=== PATIENT | female | born 1955 | race Asian ===

== ENCOUNTER 2016-11-22 00:16 | Day surgery (SDC) | payer OTHER ==
[2016-11-22] VITALS (7 sets, daily range): BP systolic 114–143; BP diastolic 69–86; PULSE 61–88; RESP 14–16; O2SAT 97–100
[~2016-11-22] VITALS: Ht 152.4 cm; Wt 58.0 kg
[~2016-11-22 00:16] MED LIST: ACET-171 PO; DILT180C81 PO; DXPN25C PO; IBUP400T22 PO; OMEP20CA11 PO; PANT40TA2 PO; POLY17PO6 PO; SIMV40TA5 PO
[2016-11-22] MEDS ORDERED: fentaNYL-PF 50 mCg/mL 2 mL Inj IVPUSH PRN (06:00)
[2016-11-22] MEDS ORDERED: 0.9% Sodium Chloride 1,000 ML IV SCH (06:00)
[2016-11-22] MEDS ORDERED: Sodium Chloride LOK Flush 10 mL Syringe IV PRN (06:00)
== END 2016-11-22 23:59 | disposition home or self-care (01) ==
LOC: END 00:16
PROVIDERS: ATTEND Internal Medicine Gastroenterology
DX: Z12.11 Encounter for screening for malignant neoplasm of colon (principal); Z53.09 Procedure and treatment not carried out because of other contraindication; Z86.010 Personal history of colon polyps; K59.00 Constipation, unspecified; K21.9 Gastro-esophageal reflux disease without esophagitis; I10 Essential (primary) hypertension; J45.909 Unspecified asthma, uncomplicated; E78.5 Hyperlipidemia, unspecified; G47.00 Insomnia, unspecified; F32.9 Major depressive disorder, single episode, unspecified; K22.4 Dyskinesia of esophagus; E04.1 Nontoxic single thyroid nodule; Z87.891 Personal history of nicotine dependence
CPT/HCPCS: G0105; G0500; J2250; J3010; J7030

== ENCOUNTER → 2017-03-06 | Day surgery (SDC) | payer OTHER ==
[~2017-03-06] VITALS: Ht 152.4 cm; Wt 58.5 kg
[~2017-03-06] MED LIST changes: +Lactated Ringer's 1,000 ML IV ONE; -OMEP20CA11 PO; +Propofol 10 mg/mL 20 mL Inj ONE
--- NOTE | 2017-03-06 07:35 | PCM.HPANE ---
Patient Data Date of Service: Mar 06, 2017 Surgeon Admitting Provider: Attending Provider:Beka Nelson MD Primary Care Physician:Lori Ghosh MD Other Provider:Radha Andersen Anesthesia Reason for Visit History Of Adenomatous Polyp Of Colon Ht/WT & BMI Body Mass Index Allergies Coded Allergies: No Known Allergies (Verified Allergy, Unknown, 03/06/17) Past Anesthesia History Anesthesia History: Denies:: Abnormal Airway, Anesthesia Reactions, Difficult Intubation, Fam Anesthesia Reaction, Fam Malignant Hypertherm, Malignant Hyperthermia Diabetes History Hx Diabetes?: No MRSA MRSA: No Medications Active Scripts Pantoprazole DR (Protonix)40 Mg Fvpypc51 Mg PO DAILYAC 30 Days Prov:Lew Gill MD 11/14/14 Reported Medications Polyethylene Glycol 3350 (Miralax)17 Gm Powd.pack17 Gm PO DAILY 11/21/16 Ibuprofen 400 Mg Syxybs423 Mg PO QID PRN For Pain Ref 0 11/21/16 Doxepin 25 Mg Htvstoe91 Mg PO HS 30 Days 11/21/16 Acetaminophen 500 Mg Ptesty788 Mg PO Q6H PRN For Fever 11/21/16 Simvastatin 40 Mg Njxrqv20 Mg PO HS 11/14/14 Diltiazem ER 180 Mg Capsule.er180 Mg PO QPM 11/14/14 Discontinued Reported Medications Omeprazole 20 Mg Capsule.dr20 Mg PO DAILY Ref 0 11/21/16 History History of ENT Problems?: No HEENT History: Denies:: Abnormal Airway Cataracts Difficult Intubation Dysphagia Hearing Problem Sinus Problem Denture Type: Full- Upper Teeth Condition: Within Normal Limits Hx of Heart Problems?: Yes Cardiovascular History: Positive for:: Coronary Artery Disease Hypertension Denies:: AICD Atrial Fibrillation Cardiac Surgery Chest Pain Congestive Heart Failure Edema Heart Murmur Irregular Heartbeat Pacemaker Thrombophlebitis Valvular Heart Disease Other Cardiac History: Diastolic heart failure Hx of Respiratory Problem?: Yes Respiratory History: Positive for:: Asthma (child) Denies:: COPD Chest Surgery Cough Dyspnea Emphysema Hemoptysis Pneumonia Tuberculosis Hx Neurologic Problems?: Yes Neurological History: Positive for:: Dizziness (today) Denies:: Alzheimer's Disease CVA Dementia Headaches Parkinson's Disease Seizures Hx of GI Problems?: No Hx of Problems?: No Genitourinary History: Denies:: HX of Hemodialysis Kidney Stones Urinary Tract Infection HX of Peritoneal Dialysis: No Female Hx: Denies:: Currently (maria isabel) Endometriosis Pelvic Inflammatory Problems with Breasts? Hx Musculoskeletal Problems?: No Musculoskeletal History: Denies:: Back Injury Joint Replacement Musculoskeletal Trauma Hx of Psycho/Social Problems?: Yes Psycho Social History: Positive for:: Anxiety Hx Depression Denies:: Bipolar Disorder Suicide Attempt Hx Surgeries?: Yes (neck and bilateral elbow surgeries; B carpal tunnel, c section, neck cyst) Hx Any Other Health Problems?: No Other History: Positive for:: Hospitalization (chest pain) Denies:: Cancer Endocrine Disease Thyroid Disease History Blood Transfusions: Denies:: Blood Transfuse Reaction Blood Transfusions Hx Diabetes: No Hx Alcohol Use: NoHx Substance Use: No Smoking Status: Former Smoker Have You Smoked inLast 12 mo: No (quit 2004) Stop/Bang Risk Assessment Category Category 1A: Patient has history of documented sleep apnea, and HAS NOT received any narcotic, sedative or anesthesia administration during this stay. Category 1B: Patient has history of documented sleep apnea, and HAS received any narcotic , sedative or anesthesia administration during this stay Category 2: Patient has SUSPECTED Obstructive Sleep Apnea, and HAS received any narcotic , sedative or anesthesia administration during this stay. Category 3: Patient has SUSPECTED Obstructive Sleep Apnea and HAS NOT received narcotic, sedative or anesthesia administration during this stay. Category 4: Outpatient in Procedural Areas with known sleep apnea or who screen positive for High Risk via the STOP/BANG questionnaire. Exam Exam General Appearance: Alert, Oriented X3, Cooperative, No Acute Distress HEENT/AIRWAY: MP 3 Lungs: Normal Air Movement Heart: Regular Rate/Rhythm Plan Impression Patient chart reviewed, patient interviewed and anesthestic plan with risks, benefits, and alternatives discussed, and informed consent obtained. NPO per Anesth. Guidelines: Yes ASA Physical Status: ASA2 Mod Systemic Disease Anesthetic Plan: MAC Bene/Risks/Altern/Consents: Yes HP Complete Prior to Induction: Yes Tab Torrez MD Mar 06, 2017 07:35
[2017-03-06 07:52] VITALS: BP 141/94; PULSE 92; RESP 16; O2SAT 97
[2017-03-06 08:53] VITALS: BP 99/70; PULSE 93; RESP 17; O2SAT 97
[2017-03-06 09:03] VITALS: BP 123/73; PULSE 85; RESP 15; O2SAT 97
[2017-03-06 09:13] VITALS: BP 124/77; PULSE 68; RESP 15; O2SAT 97
[2017-03-06 09:23] VITALS: BP 141/68; PULSE 78; RESP 14; O2SAT 99
--- NOTE | 2017-03-06 09:47 | PCM.ANEP1 ---
Post Anesthesia PACU Phase 1 Assessment Vital Signs Vital Signs Date Time Temp Pulse Resp B/P Pulse Ox O2 Delivery O2 Flow Rate FiO2 03/06/17 09:23 78 14 141/68 99 Room Air 03/06/17 09:13 68 15 124/77 97 Room Air 03/06/17 09:03 85 15 123/73 97 Room Air 03/06/17 08:53 35.8 93 17 99/70 97 Room Air 03/06/17 07:52 92 16 141/94 97 Room Air Anesthetic Administered: MAC Level of Alertness: Awake, talking Pain: No Nausea or Vomiting: No CV Function & Hydration Stable: Yes Airway Device: None Lungs: Normal Air Movement PACU Phase 2 Assessment Complications: No Follow up Care: N/A Patient Instructions Provided: N/A Tab Torrez MD Mar 06, 2017 09:47
--- NOTE | 2017-03-06 09:58 | ENDO ---
[address] [address] ENDOSCOPY PROCEDURE PATIENT: KIRA BERG : 1955 MR#: [id number] ADMIT: 03/06/2017 JOB ID: [id number] DATE: 03/06/2017 TYPE OF PROCEDURE: Colonoscopy INDICATION: Patient with a history of adenomatous colon polyps. The patient's ASA classification, Mallampati score, and medications as per Anesthesia's note. INSTRUMENT USED: [id number]-[id number] PREPARATION QUALITY: Fair. PROCEDURE DETAILS: After informed consent was obtained, the patient was brought into the GI suite, where she was placed on oxygen via nasal cannula and monitored with continuous pulse oximeter, telemetry, and blood pressure monitoring. A time-out was performed. Then, she was placed in a left lateral decubitus position and medications were administered for sedation. Digital rectal exam was performed which was unremarkable. The colonoscope was then inserted into the rectum and advanced under direct visualization to the cecum, which was identified by the presence of the ileocecal valve and appendiceal orifice. Once the cecum was reached, the colonoscope was withdrawn back into the rectum. The mucosa and lumen were examined. In the rectum, retroflexion was performed. Following retroflexion, remaining air in the rectum was suctioned, and procedure was completed. FINDINGS: 1. Normal colon rectum to cecum. 2. Retroflexed views in the rectum revealed small internal hemorrhoids. IMPRESSION: Small internal hemorrhoids. Otherwise normal exam from rectum to cecum. RECOMMENDATIONS: Repeat colonoscopy in five years, sooner if symptoms should dictate. COMPLICATIONS: None. ESTIMATED BLOOD LOSS: Zero.
== END | disposition home or self-care (01) ==
LOC: END 07:37
PROVIDERS: ATTEND Internal Medicine Gastroenterology
DX: Z12.11 Encounter for screening for malignant neoplasm of colon (principal); K64.8 Other hemorrhoids; Z86.010 Personal history of colon polyps; I10 Essential (primary) hypertension; F32.9 Major depressive disorder, single episode, unspecified; E78.5 Hyperlipidemia, unspecified; K21.9 Gastro-esophageal reflux disease without esophagitis; G47.00 Insomnia, unspecified; J45.909 Unspecified asthma, uncomplicated; Z87.891 Personal history of nicotine dependence
CPT/HCPCS: G0105; J2704; J7120